=== PATIENT | female | born 1995 | race Caucasian/White ===

== ENCOUNTER 2016-07-29 16:23 | Inpatient (IN) | payer BC ==
[2016-07-29] MEDS ORDERED: Sodium Chloride 0.9% 10 ML Syringe FLUSH PRN (16:58)
[2016-07-29] MEDS ORDERED: Lactated Ringers 1,000 ML IV SCH ×2 (17:00→19:15)
[2016-07-29] MEDS ORDERED: Lidocaine 1% 30 ML SDV INJECT ONE (17:45)
[2016-07-29] MEDS: Acetaminophen 325 MG Tab PO PRN ×2 (18:53→22:36)
[2016-07-29] MEDS: Ibuprofen 600 MG Tab PO PRN (18:53)
[2016-07-29] MEDS ORDERED: Oxytocin 10 Units/1 ML SDV IM ONE (18:58)
[2016-07-29] MEDS: Docusate Sodium 100 MG Cap PO SCH (21:28)
[2016-07-29] MEDS ORDERED: Albuterol 8 GM Inhaler INH PRN (22:28)
[2016-07-30] MEDS: Ibuprofen 600 MG Tab PO PRN ×2 (02:49→11:15)
[2016-07-30] MEDS ORDERED: Albuterol 8 GM Inhaler INH PRN (06:57)
[2016-07-30] MEDS: Docusate Sodium 100 MG Cap PO SCH (09:35)
--- NOTE | 2016-07-30 10:47 | PN ---
DATE SEEN: 07/30/2016 SUBJECTIVE: Sonya Coker is a 21-year-old, 2, para 2 female seen today for examination. Surprisingly, hemoglobin 8.8. IV fluids were maintained through the night. No discomfort. Minimal perineal discomfort. Voiding without difficulty. No stools at present, ambulating without difficulty. OBJECTIVE: U-2 tone satisfactory. Perineum minimally ecchymotic. ASSESSMENT: 1. day 1, no problems. 2. Hemoglobin 8.8. PLAN: Good nutrition, good fluids, good hydration, vitamins. No other complicating issues expected. /[id number] DARRIUS/JHONATAN
--- NOTE | 2016-07-30 12:16 | DEL ---
DATE OF DELIVERY: 07/29/2016 HISTORY OF PRESENT ILLNESS: Sonya Coker is a 21-year-old, 2, para 1-0-0-1 female at 39+ weeks' gestation. EDC 07/31/2016 was admitted to [facility] in active labor. She has been mayur since about noon. They were mild to moderate, insignificant, became more progressive mid afternoon. Group B rectovaginal culture negative. No ruptured membranes or no significant bleeding. Exam on admission was satisfactory. Vital signs were stable. Blood pressure has been a concern in the last few weeks. PHYSICAL EXAMINATION: On exam, she was found to be 9 cm dilatation, +1 station, vertex presentation. Satisfactory heart tones. I was asked to attend the delivery. Amniotomy was performed. Clear fluid by first observation. Second stage of labor, little reluctant in terms of maternal participation, but eventually showed need to push and did so accordingly. The quality of pushes delivered, rather precipitously, but controlled in KARISHMA presentation without episiotomy. Nares were attempted to be sectioned, but delivered without opportunity. No nuchal cord delivered without difficulty. Mouth and oropharynx were suctioned. Baby was active, appropriate, crying, was placed on mom's tummy for routine warming. Cord was left intact. Over the course of about 3 minutes, cord finished pulsating. Cord was clamped, dad cut the cord in attendance, was given to nurses for routine resuscitation. Male , weight 8 pounds 10 ounces. scores 9 and 9. Three-cord vessel was identified. Cord blood was obtained. There was spontaneous placental separation. Three-cord vessel is intact. Uterine tone was maintained by massage and by 10 units of intramuscular Pitocin. The perineum was inspected. A second-degree tear. Infiltrated with 2% lidocaine and repaired in complex fashion with 3-0 chromic suture. Surgical results are excellent. Blood loss was 150 mL. Rectal exam revealed intact rectum. ASSESSMENT: 1. Normal spontaneous vaginal delivery with second-degree spontaneous episiotomy. 2. 8 pounds 10 ounce male , scores 9 and 9. 3. Nutrition, bottle feeding. PLAN: Routine course. No problems or concerns. We will maintain IV fluids, close observation, maternal and well being. Proceed accordingly. /[id number] DARRIUS/JHONATAN MA
[2016-07-30 16:36] VITALS: BP 134/87
--- NOTE | 2016-07-31 15:44 | PN ---
DATE SEEN: 07/30/2016 Sonya Coker is a 2, para 2, female, now 24 hours . Up, ambulating, and doing well. hemoglobin is surprisingly 8.8. We will proceed with vitamins, good nutrition, ibuprofen for pain, and lengthy postoperative instructions. The patient is in agreement. /[id number] DARRIUS/JHONATAN
== END 2016-07-30 19:53 | disposition home or self-care (01) | DRG 560 ==
LOC: FB.OBCHECK 16:23 → FB.OB 16:26
PROVIDERS: ADMIT Family Medicine; ATTEND Family Medicine
PROC: 10E0XZZ Delivery of Products of Conception, External Approach (ICD-10-PCS; principal; 2016-07-29)
PROC: 10907ZC Drainage of Amniotic Fluid, Therapeutic from Products of Conception, Via Natural or Artificial Opening (ICD-10-PCS; 2016-07-29)
DX: O62.3 Precipitate labor (principal); Z3A.39 39 weeks gestation of pregnancy; Z37.0 Single live birth
CPT/HCPCS: 36415; 85014; 85018; 85460; 86850; 86900; 86901; A9270-GY; J2590; J2790; J7120

== ENCOUNTER 2017-07-26 23:31 | Emergency (ER) | payer BC, MEDICAID ==
[2017-07-27 03:44] VITALS: BP 122/75
--- NOTE | 2017-07-27 10:16 | ER ---
DATE SEEN: 07/26/2017 TIME SEEN: The patient was seen at 0015 hours. HISTORY OF PRESENT ILLNESS: She is a 4, para 2-1-0-2. This 11-week woman comes in with history of a gush of clot of blood this evening. No history of intercourse. Last menstrual period, 05/09/2017. She is 11 weeks . The patient denies being lightheaded, having abdominal pain, back pain, arm pain, tachycardia, chest pain, shortness of breath, or diaphoresis. ALLERGIES: Fish-containing products, peanut, and pet dander. MEDICATIONS: 1. Wellbutrin. 2. vitamins. 3. Albuterol. REVIEW OF SYSTEMS: Negative, see HPI. PHYSICAL EXAMINATION: VITAL SIGNS: Heart rate 90, respirations 17, oxygen saturation 97%, blood pressure 129/78, and temperature is 36.7 degrees centigrade. Weight 90.71 kg. BMI 31.3 kg/m2. GENERAL: This pleasant woman is attended by her . She has no abdominal pain, but she is bleeding and concerned about it. She is not diaphoretic. She does not get dizzy when she stands up. PELVIC: Exam was not performed. ABDOMEN: Abdominal palpation was negative. IMAGING: Quick-look ultrasound demonstrated fetus with heart beat of 138 to 146. There is free and random motion of the fetus. No clear evidence for placenta previa or separation of placenta. There is some darkening of some of the structures within the uterus that would be considered potential areas of placental separation; however, this is indistinct and is very nondescript and is not clearly a dark distinct blood uterine wall separation. This is more like somewhat dark stranding. Again, this still could be a suggestion of placenta previa. There is no suggestion of this extending over the cervix. ASSESSMENT: Rule out placenta previa. At present, viable fetus. 11 weeks' gestational . Previous miscarriage history. PLAN: The patient to follow up with her doctor this week. The patient has been given an assignment to do only 2 things, bedrest and get up to go to the bathroom and eat, and to also get up occasionally to socialize. 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 Follow up with her doctor in a week, earlier if worse. /[id number] NEFTALI/JHONATAN
== END 2017-07-27 01:07 | disposition home or self-care (01) ==
LOC: FB.ED 23:31
DX: O09.299 Supervision of pregnancy with other poor reproductive or obstetric history, unspecified trimester (principal); O20.9 Hemorrhage in early pregnancy, unspecified; Z3A.11 11 weeks gestation of pregnancy; Z79.899 Other long term (current) drug therapy
CPT/HCPCS: 99284

== ENCOUNTER 2017-08-18 11:59 | Emergency (ER) | payer OTHER, BC, MEDICAID ==
[2017-08-18 21:02] VITALS: BP 120/71
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
== END 2017-08-18 14:17 | disposition home or self-care (01) ==
LOC: FB.ED 11:59
DX: O9A.212 Injury, poisoning and certain other consequences of external causes complicating pregnancy, second trimester (principal); S80.01XA Contusion of right knee, initial encounter; S00.11XA Contusion of right eyelid and periocular area, initial encounter; O99.342 Other mental disorders complicating pregnancy, second trimester; F32.9 Major depressive disorder, single episode, unspecified; O99.512 Diseases of the respiratory system complicating pregnancy, second trimester; J45.909 Unspecified asthma, uncomplicated; Z3A.14 14 weeks gestation of pregnancy; V49.40XA Driver injured in collision with unspecified motor vehicles in traffic accident, initial encounter
CPT/HCPCS: 99283

== ENCOUNTER 2018-11-25 21:23 | Emergency (ER) | payer BC ==
[2018-11-25] MEDS ORDERED: predniSONE 20 MG Tab PO ONE (21:24)
--- NOTE | 2018-11-25 22:31 | EDM.PDOC ---
ED HPI GENERAL MEDICAL PROBLEM - General Chief Complaint: General Stated Complaint: MOUTH IS SWELLING UP Time Seen by Provider: 11/25/18 22:27 Source of Information: Reports: Patient History Limitations: Reports: No Limitations - History of Present Illness INITIAL COMMENTS - FREE TEXT/NARRATIVE: Sonya complains of intermittent swelling of the tongue.She was seen in the [facility] on Saturday. She was given Kenalog with some temporary improvement. Also has limited relief with OTC antihistamines.No difficultly breathing. No recent new Meds,no new diet. - Related Data Allergies Allergy/AdvReac Type Severity Reaction Status Date / Time Fish Containing Products Allergy Unknown Airway Verified 05/10/18 04:09 Tightness peanut Allergy Unknown Airway Verified 05/10/18 04:09 Tightness pet dander Allergy Sneezing Uncoded 05/10/18 04:09 Home Meds: Home Meds Albuterol [Ventolin HFA] 1 puff ORAL.INH Q4H PRN 10/25/13 [History] .Propranolol 05/10/18 [History] .Zoloft 05/10/18 [History] Famotidine [Pepcid] 20 mg PO DAILY #30 tab 05/10/18 [Rx] Levothyroxine Sodium [Synthroid] 25 mcg PO ACBREAKFAST #10 tab 05/10/18 [Rx] Past Medical History - Past Health History Medical/Surgical History: Denies Medical/Surgical History HEENT History: Reports: Impaired Vision, Other (See Below) Other HEENT History: wears glasses Cardiovascular History: Reports: Hypertension Respiratory History: Reports: Asthma Other Respiratory History: uses inhaler daily Gastrointestinal History: Reports: GERD 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: , 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 SPECIALIST History: Psychiatric History: Reports: Anxiety, Depression Endocrine/Metabolic History: Reports: Obesity/BMI 30+ Dermatologic History: Reports: Eczema - Infectious Disease History Infectious Disease History: Reports: Chicken Pox - Past Surgical History Female Surgical History: Reports: D&C Social & Family History - Family History Family Medical History: Noncontributory HEENT: Reports: Cataract OBGYN: Reports: , Recurrent Spontaneous Neurological: Reports: Alzheimers Disease Endocrine/Metabolic: Reports: Diabetes, type II Oncologic: Reports: Lung - Tobacco Use Smoking Status *Q: Former Smoker Used Tobacco, but Quit: Yes Month/Year Tobacco Last Used: 2011 - Caffeine Use Caffeine Use: Reports: Soda Other Caffeine Use: 1 bottle of pop per day Caffeine Use Comment: uses very little ED ROS GENERAL - Review of Systems Review Of Systems: ROS reveals no pertinent complaints other than HPI. ED EXAM, GENERAL - Physical Exam Exam: See Below Exam Limited By: No Limitations General Appearance: Alert, WD/WN, No Apparent Distress Nose: Normal Inspection Throat/Mouth: Normal Inspection, Normal Lips, Normal Oropharynx, Normal Voice Head: Atraumatic, Sinus Tenderness Course - Vital Signs Last Recorded V/S: Last Vital Signs Temp 98.0 F 11/25/18 21:23 Pulse 98 11/25/18 21:23 Resp 17 11/25/18 21:23 BP 113/71 11/25/18 21:23 Pulse Ox 100 11/25/18 21:23 Departure - Departure Time of Disposition: 22:29 Disposition: Home, Self-Care 01 Condition: Good Clinical Impression: Angioedema - Discharge Information Referrals: Sven Charlton MD [Primary Care Provider] - - Problem List & Annotations (1) Angioedema SNOMED Code(s): 51497031 Code(s): T78.3XXA - ANGIONEUROTIC EDEMA, INITIAL ENCOUNTER Status: Acute Current Visit: Yes Qualifiers: Encounter type: subsequent encounter Qualified Code(s): T78.3XXD - Angioneurotic edema, subsequent encounter - Problem List Review Problem List Initiated/Reviewed/Updated: Yes - My Orders Last 24 Hours: Prednisone 20 mg bid. Claritin 10 mg daily(OTC). See Dr Gregory this week for a referral to [facility] [place].
[2018-11-25 23:35] VITALS: BP 107/54; PULSE 89
== END 2018-11-25 22:39 | disposition home or self-care (01) ==
LOC: FB.ED 21:23
DX: T78.3XXA Angioneurotic edema, initial encounter (principal); I10 Essential (primary) hypertension; J45.909 Unspecified asthma, uncomplicated; F41.9 Anxiety disorder, unspecified; F32.9 Major depressive disorder, single episode, unspecified; K21.9 Gastro-esophageal reflux disease without esophagitis; Z91.013 Allergy to seafood; Z91.010 Allergy to peanuts; Z91.048 Other nonmedicinal substance allergy status; Z79.899 Other long term (current) drug therapy
CPT/HCPCS: 99283; A9270

== ENCOUNTER → 2019-02-24 | Outpatient (CLI) | payer BC | LOC: FB.DI 13:03 | PROVIDERS: ATTEND Family Medicine | DX: R10.84 Generalized abdominal pain (principal); K80.20 Calculus of gallbladder without cholecystitis without obstruction | CPT/HCPCS: 76705 ==

== ENCOUNTER 2019-04-20 20:38 | Emergency (ER) | payer BC, OTHER ==
[2019-04-20] MEDS ORDERED: Ondansetron 4 MG Tab.DIS PO ONE (20:39)
[2019-04-20] MEDS ORDERED: Ondansetron 8 MG Tab.DIS PO ONE (20:57)
[2019-04-20] MEDS ORDERED: Alum Hydroxide/Mag Hydroxide 15 ML, Lidocaine 2% 15 ML PO ONE ×2 (20:57)
--- NOTE | 2019-04-20 21:10 | EDM.PDOC ---
ED HPI GENERAL MEDICAL PROBLEM - General Stated Complaint: CHEST PAIN Time Seen by Provider: 04/20/19 20:45 Source of Information: Reports: Patient History Limitations: Reports: No Limitations - History of Present Illness INITIAL COMMENTS - FREE TEXT/NARRATIVE: states she developed the viral enteritis this pm at 7 pm. with diarrhea , nausea and no vomiting , Symptoms got worse . Now she has epigastric and chest pain , burning sensation in the chest Onset: Today Onset Date: 04/27/19 Onset Time: 19:00 Duration: Intermittent Location: Reports: Abdomen (epigastrium and chest) Quality: Reports: Burning Severity: Moderate Improves with: Reports: Eating Worsens with: Reports: Breathing Context: Reports: Sick Contact Associated Symptoms: Reports: Loss of Appetite, Malaise - Related Data Allergies Allergy/AdvReac Type Severity Reaction Status Date / Time Fish Containing Products Allergy Unknown Airway Verified 04/20/19 20:50 Tightness peanut Allergy Unknown Airway Verified 04/20/19 20:50 Tightness pet dander Allergy Sneezing Uncoded 04/20/19 20:50 Home Meds: Home Meds Albuterol [Ventolin HFA] 1 puff ORAL.INH Q4H PRN 10/25/13 [History] Omeprazole Magnesium [Prilosec Otc] 20 mg PO DAILY 04/20/19 [History] Ondansetron [Zofran ODT] 4 mg PO Q6H PRN #20 tab.dis 04/20/19 [Rx] buPROPion HCl [Wellbutrin Xl] 150 mg PO DAILY 04/20/19 [History] Past Medical History - Past Health History Medical/Surgical History: Denies Medical/Surgical History HEENT History: Reports: Impaired Vision, Other (See Below) Other HEENT History: wears glasses Cardiovascular History: Reports: Hypertension Respiratory History: Reports: Asthma Other Respiratory History: uses inhaler daily Gastrointestinal History: Reports: GERD 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: , 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 History: Psychiatric History: Reports: Anxiety, Depression Endocrine/Metabolic History: Reports: Obesity/BMI 30+ Dermatologic History: Reports: Eczema - Infectious Disease History Infectious Disease History: Reports: Chicken Pox - Past Surgical History Female Surgical History: Reports: D&C Social & Family History - Family History Family Medical History: Noncontributory HEENT: Reports: Cataract OBGYN: Reports: , Recurrent Spontaneous Neurological: Reports: Alzheimers Disease Endocrine/Metabolic: Reports: Diabetes, type II Oncologic: Reports: Lung - Caffeine Use Caffeine Use: Reports: Soda Other Caffeine Use: 1 bottle of pop per day Caffeine Use Comment: uses very little ED ROS GENERAL - Review of Systems Review Of Systems: See Below Constitutional: Reports: Malaise, Weakness, Fatigue HEENT: Reports: No Symptoms Respiratory: Reports: No Symptoms Cardiovascular: Reports: Chest Pain, Palpitations. Denies: Blood Pressure Problem, Dyspnea on Exertion, Edema, Lightheadedness Endocrine: Reports: Fatigue GI/Abdominal: Reports: Abdominal Pain, Diarrhea, Decreased Appetite, Nausea : Reports: No Symptoms Musculoskeletal: Reports: No Symptoms Skin: Reports: No Symptoms Neurological: Reports: No Symptoms Psychiatric: Reports: Anxiety Hematologic/Lymphatic: Reports: No Symptoms Immunologic: Reports: No Symptoms ED EXAM, GI/ABD - Physical Exam Exam: See Below Exam Limited By: No Limitations General Appearance: Alert, WD/WN, No Apparent Distress Eyes: Bilateral: EOMI Ears: Normal External Exam, Hearing Grossly Normal Nose: Normal Inspection Throat/Mouth: Normal Inspection, Normal Lips Head: Atraumatic, Normocephalic Neck: Supple, Non-Tender, Full Range of Motion Respiratory/Chest: Lungs Clear, Normal Breath Sounds Cardiovascular: Normal Peripheral Pulses, Regular Rate, Rhythm GI/Abdominal Exam: Soft, Abnormal Bowel Sounds (hyperactive) Back Exam: Normal Inspection, Full Range of Motion Extremities: Normal Inspection, Normal Range of Motion Neurological: Alert, Oriented, CN II-XII Intact Psychiatric: Normal Affect, Normal Mood Skin Exam: Warm, Intact Course - Vital Signs Last Recorded V/S: Last Vital Signs Temp 36.3 C 04/20/19 20:40 Pulse 105 H 04/20/19 20:40 Resp 20 04/20/19 20:40 BP 125/72 04/20/19 20:40 Pulse Ox 100 04/20/19 20:40 - Orders/Labs/Meds Meds: Medications Discontinued Medications Generic Name Dose Route Start Last Admin Trade Name Freq PRN Reason Stop Dose Admin Al Hydroxide/Mg Hydroxide 15 0 ml 04/20/19 20:57 04/20/19 21:20 ml/ Lidocaine HCl 15 ml PO 04/20/19 20:58 30 ml ONETIME ONE Administration Ondansetron HCl 8 mg 04/20/19 20:57 04/20/19 21:20 Zofran Odt PO 04/20/19 20:58 8 mg ONETIME ONE Administration - Re-Assessments/Exams Free Text/Narrative Re-Assessment/Exam: 04/20/19 21:20 felt better after taking Zofran and GI cocktail Departure - Departure Time of Disposition: 09:30 Disposition: Home, Self-Care 01 Condition: Fair Clinical Impression: Viral gastroenteritis Gastritis Qualifiers: Gastritis type: unspecified gastritis Chronicity: acute Gastritis bleeding: without bleeding Qualified Code(s): K29.00 - Acute gastritis without bleeding - Discharge Information *PRESCRIPTION DRUG MONITORING PROGRAM REVIEWED*: Not Applicable *COPY OF PRESCRIPTION DRUG MONITORING REPORT IN PATIENT MONE: Not Applicable Prescriptions: Ondansetron [Zofran ODT] 4 mg PO Q6H PRN #20 tab.dis PRN Reason: Nausea Instructions: Gastritis, Adult, [id number], Viral Gastroenteritis, Adult, [id number] Referrals: PCP,None [Primary Care Provider] - Sepsis Event Note - Focused Exam Vital Signs: Vital Signs Temp Pulse Resp BP Pulse Ox 04/20/19 20:40 36.3 C 105 H 20 125/72 100
[2019-04-21 05:23] VITALS: BP 104/75; PULSE 113
== END 2019-04-20 21:47 | disposition home or self-care (01) ==
LOC: FB.ED 20:38
DX: A08.4 Viral intestinal infection, unspecified (principal); K29.00 Acute gastritis without bleeding; I10 Essential (primary) hypertension; J45.909 Unspecified asthma, uncomplicated; K21.9 Gastro-esophageal reflux disease without esophagitis; F41.9 Anxiety disorder, unspecified; F32.9 Major depressive disorder, single episode, unspecified; E66.9 Obesity, unspecified; Z68.31 Body mass index [BMI] 31.0-31.9, adult; Z91.010 Allergy to peanuts; Z91.013 Allergy to seafood; Z91.048 Other nonmedicinal substance allergy status; Z79.899 Other long term (current) drug therapy
CPT/HCPCS: 99283; 99284; A9270

== ENCOUNTER 2019-09-29 23:37 | Emergency (ER) | payer OTHER ==
[2019-09-30] MEDS ORDERED: Ondansetron 4 MG Tab.DIS PO STA (00:12)
[2019-09-30] MEDS ORDERED: Ketorolac 60 MG/2 ML SDV IM ONE (00:12)
--- NOTE | 2019-09-30 00:22 | EDM.PDOC ---
ED HPI GENERAL MEDICAL PROBLEM - General Chief Complaint: Back Pain or Injury Stated Complaint: CHEST PAIN Time Seen by Provider: 09/29/19 23:40 Source of Information: Reports: Patient History Limitations: Reports: No Limitations - History of Present Illness INITIAL COMMENTS - FREE TEXT/NARRATIVE: Patient presented to the ED because of chset pain and left shoulder pain which started 4 days ago. The pain is sharp and pleuritic, it comes and goes and associated with nausea and dyspnea. there is no fever or chills. L midback radiating across L upper chest Pain Score (Numeric/FACES): 5 - Related Data Allergies Allergy/AdvReac Type Severity Reaction Status Date / Time Fish Containing Products Allergy Unknown Airway Verified 09/29/19 23:45 Tightness peanut Allergy Unknown Airway Verified 09/29/19 23:45 Tightness pet dander Allergy Sneezing Uncoded 09/29/19 23:45 Home Meds: Home Meds Albuterol [Ventolin HFA] 2 puff ORAL.INH Q4H PRN 10/25/13 [History] Azithromycin [Zithromax] 250 mg PO DAILY #6 tablet 09/30/19 [Rx] predniSONE [Prednisone] 40 mg PO DAILY #10 tablet 09/30/19 [Rx] Past Medical History - Past Health History Medical/Surgical History: Denies Medical/Surgical History HEENT History: Reports: Impaired Vision, Other (See Below) Other HEENT History: wears glasses Cardiovascular History: Reports: Hypertension Other Cardiovascular History: preclampsia Respiratory History: Reports: Asthma Other Respiratory History: uses inhaler daily Gastrointestinal History: Reports: GERD 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: , 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: Neurological History: Reports: Migraines Psychiatric History: Reports: Anxiety, Depression Endocrine/Metabolic History: Reports: Obesity/BMI 30+ Dermatologic History: Reports: Eczema - Infectious Disease History Infectious Disease History: Reports: Chicken Pox - Past Surgical History Head Surgeries/Procedures: Reports: None HEENT Surgical History: Reports: None Cardiovascular Surgical History: Reports: None GI Surgical History: Reports: None Female Surgical History: Reports: D&C Social & Family History - Family History Family Medical History: Noncontributory HEENT: Reports: Cataract OBGYN: Reports: , Recurrent Spontaneous Neurological: Reports: Alzheimers Disease Endocrine/Metabolic: Reports: Diabetes, type II Oncologic: Reports: Lung - Tobacco Use Smoking Status *Q: Former Smoker Years of Tobacco use: 1 Used Tobacco, but Quit: Yes Month/Year Tobacco Last Used: 2011 - Caffeine Use Caffeine Use: Reports: Soda, Tea Other Caffeine Use: 1 bottle of pop per day Caffeine Use Comment: uses very little - Recreational Drug Use Recreational Drug Use: No ED ROS GENERAL - Review of Systems Review Of Systems: See Below Constitutional: Reports: No Symptoms HEENT: Reports: No Symptoms Respiratory: Reports: Shortness of Breath Cardiovascular: Reports: Chest Pain Endocrine: Reports: No Symptoms GI/Abdominal: Reports: Nausea ED EXAM, GENERAL - Physical Exam Exam: See Below Exam Limited By: No Limitations General Appearance: Alert, No Apparent Distress Ears: Normal External Exam Nose: Normal Inspection, Normal Mucosa, No Blood Throat/Mouth: Normal Inspection, Normal Lips, Normal Teeth Head: Atraumatic, Normocephalic Neck: Normal Inspection, Supple, Non-Tender, Full Range of Motion Respiratory/Chest: No Respiratory Distress, Lungs Clear, Normal Breath Sounds, No Accessory Muscle Use, Chest Non-Tender Cardiovascular: Normal Peripheral Pulses, Regular Rate, Rhythm, No Edema, No Gallop GI/Abdominal: Normal Bowel Sounds, Soft, Non-Tender Back Exam: Normal Inspection, Full Range of Motion Course - Vital Signs Text/Narrative:: EKG/Labs/CXR was discussed with patient and verbalized full understanding Zofran 4mg ODT Toradol 60 mg IM x1 Last Recorded V/S: Last Vital Signs Temp 36.3 C 09/29/19 23:37 Pulse 76 09/30/19 00:55 Resp 18 09/30/19 00:55 BP 120/76 09/30/19 00:55 Pulse Ox 99 09/30/19 00:55 - Orders/Labs/Meds Orders: Active Orders 24 hr Category Date Time Status Chest 1V Frontal [CR] Stat Exams 09/30/19 00:07 Taken EKG 12 Lead [EK] Routine Ther 09/29/19 23:49 Ordered Labs: Laboratory Tests 09/30/19 09/30/19 09/30/19 Range/Units 00:00 00:00 00:00 WBC 12.7 H (4.5-12.0) X10-3/uL RBC 4.62 (3.23-5.20) x10(6)uL Hgb 13.1 (11.5-15.5) g/dL Hct 40.0 (30.0-51.3) % MCV 86.6 (80-96) fL MCH 28.4 (27.7-33.6) pg MCHC 32.8 (32.2-35.4) g/dL RDW 14.6 (11.5-15.5) % Plt Count 269 (125-369) X10(3)uL MPV 9.1 (7.4-10.4) fL Neut % (Auto) 60.5 (46-82) % Lymph % (Auto) 27.7 (13-37) % [place] % (Auto) 6.1 (4-12) % Eos % (Auto) 5 (1.0-5.0) % Baso % (Auto) 1 (0-2) % Neut # (Auto) 7.6 (1.6-8.3) # Lymph # (Auto) 3.5 (0.6-5.0) # [place] # (Auto) 0.8 (0.0-1.3) # Eos # (Auto) 0.7 (0.0-0.8) # Baso # (Auto) 0.1 (0.0-0.2) # Sodium 139 (135-145) mmol/L Potassium 4.0 (3.5-5.3) mmol/L Chloride 103 (100-110) mmol/L Carbon Dioxide 27 (21-32) mmol/L BUN 15 (7-18) mg/dL Creatinine 0.8 (0.55-1.02) mg/dL Est Cr Clr Drug Dosing 99.76 mL/min Estimated GFR (MDRD) > 60 (>60) BUN/Creatinine Ratio 18.8 (9-20) Glucose 101 (80-116) mg/dL Calcium 9.6 (8.6-10.2) mg/dL Troponin I < 4.0 L (4.0-60.3) pg/mL Meds: Medications Discontinued Medications Generic Name Dose Route Start Last Admin Trade Name Freq PRN Reason Stop Dose Admin Hydroxyzine Pamoate 50 mg 09/30/19 01:10 09/30/19 01:17 Vistaril PO 09/30/19 01:11 50 mg NOW STA Administration Ketorolac Tromethamine 60 mg 09/30/19 00:12 09/30/19 00:31 Toradol IM 09/30/19 00:13 60 mg ONETIME ONE Administration Ondansetron HCl 4 mg 09/30/19 00:12 09/30/19 00:31 Zofran Odt PO 09/30/19 00:13 4 mg NOW STA Administration Departure - Departure Time of Disposition: 01:00 Disposition: Home, Self-Care 01 Condition: Good Clinical Impression: Pleurisy Prescriptions: predniSONE [Prednisone] 40 mg PO DAILY #10 tablet Azithromycin [Zithromax] 250 mg PO DAILY #6 tablet Instructions: Ondansetron oral dissolving tablet, Nonspecific Chest Pain, Adult, [id number], Pleurisy, [id number], Hydroxyzine capsules or tablets Referrals: Sven Charlton MD [Primary Care Provider] - Forms: ED Department Discharge Additional Instructions: Please read discharge instructions on pleurisy Increase oral fluids Ventolin Inh, 2 puffs every 4-6 hours as needed for dyspnea prednisone 20 mg, take 2 tablets daily for 6 days Follow up if symptoms persist. Sepsis Event Note (ED) - Evaluation Sepsis Screening Result: No Definite Risk - Focused Exam Vital Signs: Vital Signs Temp Pulse Resp BP Pulse Ox 09/30/19 00:55 76 18 120/76 99 09/29/19 23:37 36.3 C 85 20 130/78 100 - My Orders Last 24 Hours: My Active Orders 09/29/19 23:49 EKG 12 Lead [EK] Routine 09/30/19 00:07 Chest 1V Frontal [CR] Stat - Assessment/Plan Last 24 Hours: My Active Orders 09/29/19 23:49 EKG 12 Lead [EK] Routine 09/30/19 00:07 Chest 1V Frontal [CR] Stat
[2019-09-30 01:42] VITALS: BP 120/76; PULSE 76
--- NOTE | 2019-09-30 10:20 | CR ---
INDICATION: Chest pain. CHEST, ONE VIEW: Portable AP upright view of the chest was obtained 09/30/2019-no comparisons. The heart, mediastinum, and body thorax are unremarkable. While a definite active infiltrate or effusion was not identified, there is bronchial wall cuffing at the lung bases of mild to moderate degree, which could be on the basis of active peribronchial disease and should be correlated clinically. IMPRESSION: Bronchial wall cuffing. No other evidence of possible active disease. MTDD
== END 2019-09-30 01:20 | disposition home or self-care (01) ==
LOC: FB.ED 23:37
DX: R09.1 Pleurisy (principal); E66.9 Obesity, unspecified; I10 Essential (primary) hypertension; J45.909 Unspecified asthma, uncomplicated; Z87.891 Personal history of nicotine dependence; Z79.899 Other long term (current) drug therapy; Z91.048 Other nonmedicinal substance allergy status; Z91.013 Allergy to seafood; Z91.010 Allergy to peanuts; Z68.31 Body mass index [BMI] 31.0-31.9, adult
CPT/HCPCS: 36415; 71045; 80048; 84484; 85025; 93005; 96372; 99285; A9270; J1885

== ENCOUNTER 2020-02-10 07:19 | Day surgery (SDC) | payer OTHER ==
[~2020-02-10 07:19] MED LIST: Lactated Ringers 1,000 ML IV SCH; Sodium Chloride 0.9% 10 ML Syringe FLUSH PRN
[2020-02-10] MEDS ORDERED: fentaNYL 100 MCG/2 ML SDV IV ONE (07:20)
[2020-02-10] MEDS ORDERED: Dexamethasone 4 MG/ML 5 ML MDV IVPUSH ONE (07:20)
[2020-02-10] MEDS ORDERED: Rocuronium 100 MG/10 ML MDV IV ONE (07:20)
[2020-02-10] MEDS ORDERED: Ondansetron 4 MG/2 ML SDV IVPUSH ONE (07:20)
[2020-02-10] MEDS ORDERED: ePHEDrine 50 MG/ML SDV IV ONE (07:20)
[2020-02-10] MEDS ORDERED: Neostigmine Methylsulfate 10 MG/10 ML MDV IVPUSH ONE (07:20)
[2020-02-10] MEDS ORDERED: Glycopyrrolate 0.2 MG/ML 5 ML MDV IV ONE (07:20)
[2020-02-10] MEDS ORDERED: Lactated Ringers 1,000 ML IV ONE (07:20)
[2020-02-10] MEDS ORDERED: Propofol 200 MG/20 ML SDV IV ONE (07:20)
[2020-02-10] MEDS ORDERED: Phenylephrine 1% 10 MG/ML SDV IV ONE (07:20)
[2020-02-10] MEDS ORDERED: Ketamine 500 mg/10 ML MDV IV ONE (07:20)
[2020-02-10] MEDS ORDERED: Midazolam 1 MG/ML 2 ML SDV IV ONE (07:20)
[2020-02-10] MEDS ORDERED: Acetaminophen 500 MG Tab PO ONE (07:45)
[2020-02-10] MEDS ORDERED: cefOXitin 2 GM in Sodium Chloride 0.9% 100 ML IV ONE (08:45)
[2020-02-10] MEDS ORDERED: cefOXitin 2 GM Vial IVPUSH ONE (08:45)
[2020-02-10] MEDS ORDERED: Lidocaine 1% with EPINEPHrine 1:100,000 20 ML MDV INJECT ONE (08:48)
[2020-02-10] MEDS ORDERED: Bupivacaine 0.5% 30 ML SDV INJECT ONE (08:48)
--- NOTE | 2020-02-10 09:41 | PCM.OPNOTE ---
- General Post-Op/Procedure Note Date of Surgery/Procedure: 02/10/20 Operative Procedure(s): lap cholecystectomy Findings: ciritcal view obtained. Pre Op Diagnosis: gallstones without obstruction or infection Post-Op Diagnosis: Same Anesthesia Technique: General ET Tube, Local (10 ml 1 % lido with epi/0.5% buvipicaine) Primary Surgeon: Yoel Lim Anesthesia Provider: Maria A Herrera Pathology: gallbladder and contents EBL in mLs: 30 Complications: None Condition: Good Free Text/Narrative:: see dictation [id number]
[2020-02-10] MEDS ORDERED: Acetaminophen/HYDROcodone 325-5 MG Tab PO PRN (09:48)
[2020-02-10 12:35] VITALS: BP 121/65; PULSE 87
--- NOTE | 2020-02-10 14:38 | OR ---
DATE OF OPERATION: 02/10/2020 SURGEON: Yoel Lim MD PROCEDURE PERFORMED: Laparoscopic cholecystectomy. PREOPERATIVE DIAGNOSIS: Cholelithiasis without obstruction or cholecystitis. POSTOPERATIVE DIAGNOSIS: Cholelithiasis without obstruction or cholecystitis. INDICATIONS FOR PROCEDURE: This is a 24-year-old white female with symptomatic gallstones. She was offered and accepted laparoscopic cholecystectomy. INTRAOPERATIVE FINDINGS: 10 mL of our local mixture was used for trocar sites. Critical view was obtained. The patient was also noted to have what appeared to be an aberrant blood vessel that was anterior to the cystic duct. This was noted to splay out on the gallbladder as well. Photo was taken of this area. DESCRIPTION OF PROCEDURE: After an excellent general anesthetic was administered via endotracheal tube, the patient was prepped and draped in usual sterile manner. Local was injected just below the patient's umbilicus and a small vertical midline incision was carried out of approximately 2 cm in length. Blunt dissection was carried out exposing the midline fascia and 2 stay sutures of 0 Vicryl placed on either side of midline fascia which was then elevated and incised. The abdominal cavity was entered sharply, and after digital palpation to ensure no adhesions, a 10.5 mm Lucita trocar was inserted. The patient's abdomen was insufflated to 15 mmHg using carbon dioxide. The patient was then placed in reverse Trendelenburg with a slight airplane to the left. Three 5 mm trocars were placed below the right costal margin and in the midline. This was done by infiltrating local full thickness, making a stab incision, and then, inserting the trocars. The right costal trocar sites were at the approximate level of the midclavicular and anterior axillary line. The gallbladder was grasped, retracted in a cephalad fashion. Careful blunt dissection was carried out. As noted, running anterior from the surface of the gallbladder down into the anterior to the common bile duct, the cystic duct, there was what appeared to be a splayed out blood vessel. The cystic duct and the cystic artery were then dissected free and identified as well. After assuring that we did have the cystic duct as well as the cystic artery and looking at the size of the anterior blood vessel which was roughly a millimeter if that big in size, 2 clips were proximally on this structure, one distally and then this was transected, two clips were placed proximally on the cystic duct and one distally and this was transected, two clips were placed proximally on the cystic artery and one distally and this was transected as well using scissors. Electrocautery dissection was then used to dissect the gallbladder free from the gallbladder fossa. The specimen was passed into specimen bag and delivered out through the umbilicus. When we returned to inspect the gallbladder fossa, there was some diffuse oozing. This was controlled with electrocautery. The area was irrigated. We did apply a piece of Surgicel, and after 5 minutes, we reinspected the area with no active bleeding noted. The area was irrigated until clear. 3 trocars were removed under direct visualization, and then, umbilical trocar was removed as well. 0 Vicryl was then used in a figure-of- eight to reapproximate the periumbilical fascia. The skin was closed with interrupted 4-0 Vicryl. Steri-Strips were applied. Needle, sponge, and instrument counts were reported as correct. /[id number] /MODL
== END 2020-02-10 12:17 | disposition home or self-care (01) ==
LOC: FB.SDS 07:19
PROVIDERS: ATTEND Surgery
DX: K80.10 Calculus of gallbladder with chronic cholecystitis without obstruction (principal); J45.40 Moderate persistent asthma, uncomplicated; Z98.890 Other specified postprocedural states; Z79.899 Other long term (current) drug therapy
CPT/HCPCS: 00790; 47562; 81025; 88304; A9270; J0694; J1100; J2001; J2250; J2370; J2405; J2704; J2710; J3010; J3490; J7120

== ENCOUNTER 2020-03-20 20:48 | Emergency (ER) | payer OTHER ==
--- NOTE | 2020-03-20 22:06 | EDM.PDOC ---
ED HPI GENERAL MEDICAL PROBLEM - General Chief Complaint: Chest Pain Stated Complaint: CHEST PAIN Time Seen by Provider: 03/20/20 21:05 Source of Information: Reports: Patient History Limitations: Reports: No Limitations - History of Present Illness INITIAL COMMENTS - FREE TEXT/NARRATIVE: Patient presented to the ED because of chest pain and back pain which started 3 days ago. The pain is sharp,3/10. there is no fever/chills/ cough or cold symptoms. She also c/o eldt shoulder pain radiating to the upper back. L anterior chest into L shoulder & back Pain Score (Numeric/FACES): 4 - Related Data Allergies Allergy/AdvReac Type Severity Reaction Status Date / Time Fish Containing Products Allergy Unknown Airway Verified 02/10/20 07:49 Tightness peanut Allergy Unknown Anaphylactic Verified 02/10/20 07:49 Shock tree nut Allergy Anaphylactic Verified 02/10/20 07:49 Shock pet dander Allergy Sneezing Uncoded 02/10/20 07:49 Home Meds: Home Meds Albuterol [Ventolin HFA] 2 puff INH Q4H PRN 10/25/13 [History] Beclomethasone Dipropionate [Qvar] 2 hr INH BID 02/09/20 [History] EPINEPHrine [Epipen] 0.3 mg IM ASDIRECTED PRN 02/09/20 [History] Fluticasone Propionate [Flonase] 1 spray NASBOTH BID PRN 02/09/20 [History] Lactobacillus Rhamnosus GG [Culturelle] 1 cap PO DAILY 02/09/20 [History] Levonorgestrel/Ethin.estradiol [Levonor-Eth Estrad 0.15-0.03] 1 each PO DAILY 02/09/20 [History] Omeprazole 20 mg PO DAILY 02/09/20 [History] Sucralfate [Carafate] 1 gm PO QID 02/09/20 [History] Triamcinolone Acetonide [Kenalog 0.1% Crm] 1 applic TOP BID 02/09/20 [History] Vitamin B Complex 1 tab PO DAILY 02/09/20 [History] Acetaminophen/HYDROcodone [Protem 325-5 MG] 1 - 2 tab PO Q6H PRN #14 tab 02/10/20 [Rx] Celecoxib [CeleBREX] 200 mg PO BID #10 cap 02/10/20 [Rx] Past Medical History - Past Health History Medical/Surgical History: Denies Medical/Surgical History HEENT History: Reports: Impaired Vision Cardiovascular History: Reports: None Respiratory History: Reports: Asthma Gastrointestinal History: Reports: Cholelithiasis, GERD Genitourinary History: Reports: None 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 PREECLAMPSIA Musculoskeletal History: Reports: None Neurological History: Reports: Migraines Psychiatric History: Reports: Anxiety, Depression Endocrine/Metabolic History: Reports: Obesity/BMI 30+ Hematologic History: Reports: None Immunologic History: Reports: None Oncologic (Cancer) History: Reports: None Dermatologic History: Reports: Eczema - Infectious Disease History Infectious Disease History: Reports: Chicken Pox - Past Surgical History Head Surgeries/Procedures: Reports: None HEENT Surgical History: Reports: None Cardiovascular Surgical History: Reports: None Respiratory Surgical History: Reports: None GI Surgical History: Reports: None Female Surgical History: Reports: D&C Endocrine Surgical History: Reports: None Neurological Surgical History: Reports: None Musculoskeletal Surgical History: Reports: None Oncologic Surgical History: Reports: None Dermatological Surgical History: Reports: None Social & Family History - Family History Family Medical History: No Pertinent Family History HEENT: Reports: Cataract OBGYN: Reports: , Recurrent Spontaneous Neurological: Reports: Alzheimers Disease Endocrine/Metabolic: Reports: Diabetes, type II Oncologic: Reports: Lung - Caffeine Use Caffeine Use: Reports: Soda, Tea Other Caffeine Use: 1 bottle of pop per day Caffeine Use Comment: uses very little ED ROS GENERAL - Review of Systems Review Of Systems: See Below Constitutional: Reports: No Symptoms HEENT: Reports: No Symptoms Respiratory: Reports: No Symptoms Cardiovascular: Reports: No Symptoms Endocrine: Reports: No Symptoms GI/Abdominal: Reports: No Symptoms : Reports: No Symptoms Musculoskeletal: Reports: Shoulder Pain Skin: Reports: No Symptoms ED EXAM, GENERAL - Physical Exam Exam: See Below Exam Limited By: No Limitations General Appearance: Alert, No Apparent Distress Ears: Normal External Exam Nose: Normal Inspection, Normal Mucosa, No Blood Throat/Mouth: Normal Inspection, Normal Lips, Normal Teeth Neck: Normal Inspection Respiratory/Chest: No Respiratory Distress Cardiovascular: Normal Peripheral Pulses, Regular Rate, Rhythm, No Edema, No Gallop GI/Abdominal: Normal Bowel Sounds, Soft, Non-Tender, No Organomegaly Extremities: Normal Inspection, Normal Range of Motion, Non-Tender Neurological: Alert, Oriented, CN II-XII Intact, Normal Cognition Psychiatric: Normal Affect Course - Vital Signs Text/Narrative:: Labs/EKG was discussed with patient refused pain medication Last Recorded V/S: Last Vital Signs Temp 36.5 C 03/20/20 21:00 Pulse 98 03/20/20 21:00 Resp 18 03/20/20 21:00 BP 132/82 03/20/20 21:00 Pulse Ox 100 03/20/20 21:00 - Orders/Labs/Meds Orders: Active Orders 24 hr Category Date Time Status EKG Documentation Completion [RC] ASDIRECTED Care 03/20/20 21:12 Active EKG 12 Lead [EK] Routine Ther 03/20/20 21:06 Ordered Labs: Laboratory Tests 03/20/20 03/20/20 03/20/20 Range/Units 21:15 21:15 21:15 WBC 9.6 (3.0-10.3) x10-3/uL RBC 4.41 (3.60-5.20) x10(6)uL Hgb 12.9 (11.4-15.5) g/dL Hct 38.7 (34.2-48.2) % MCV 87.7 (76.7-100.5) fL MCH 29.2 (23.9-33.9) pg MCHC 33.3 (31.9-34.8) g/dL RDW 14.3 (12.3-16.5) % Plt Count 211 (151-488) x10(3)uL MPV 9.2 (7.1-12.4) fL Neut % (Auto) 57.9 (30.8-76.2) % Lymph % (Auto) 32.5 (18.4-52.1) % Bradley % (Auto) 6.2 (4.4-15.7) % Eos % (Auto) 2.9 (0.6-8.1) % Baso % (Auto) 0.5 (0.2-1.5) % Neut # (Auto) 5.6 (1.5-6.3) x10-3/uL Lymph # (Auto) 3.1 (1.0-4.4) x10-3/uL Bradley # (Auto) 0.6 (0.3-1.0) x10-3/uL Eos # (Auto) 0.3 (0.0-0.8) x10-3/uL Baso # (Auto) 0.1 (0.0-0.1) x10-3/uL D-Dimer, Quantitative 0.34 (0.0-0.59) mg/LFEU Sodium 140 (135-145) mmol/L Potassium 4.0 (3.5-5.3) mmol/L Chloride 103 (100-110) mmol/L Carbon Dioxide 28 (21-32) mmol/L BUN 13 (7-18) mg/dL Creatinine 0.8 (0.55-1.02) mg/dL Est Cr Clr Drug Dosing TNP Estimated GFR (MDRD) > 60 (>60) BUN/Creatinine Ratio 16.3 (9-20) Glucose 98 (80-116) mg/dL Calcium 8.5 L (8.6-10.2) mg/dL Total Bilirubin 0.4 (0.1-1.3) mg/dL AST 25 D (5-25) IU/L ALT 46 H D (12-36) U/L Alkaline Phosphatase 83 (56-112) IU/L Troponin I (4.0-60.3) pg/mL Total Protein 7.7 (6.0-8.0) g/dL Albumin 3.8 (3.5-5.2) g/dL Globulin 3.9 g/dL Albumin/Globulin Ratio 1.0 12/13/20 Range/Units 21:15 WBC (3.0-10.3) x10-3/uL RBC (3.60-5.20) x10(6)uL Hgb (11.4-15.5) g/dL Hct (34.2-48.2) % MCV (76.7-100.5) fL MCH (23.9-33.9) pg MCHC (31.9-34.8) g/dL RDW (12.3-16.5) % Plt Count (151-488) x10(3)uL MPV (7.1-12.4) fL Neut % (Auto) (30.8-76.2) % Lymph % (Auto) (18.4-52.1) % Bradley % (Auto) (4.4-15.7) % Eos % (Auto) (0.6-8.1) % Baso % (Auto) (0.2-1.5) % Neut # (Auto) (1.5-6.3) x10-3/uL Lymph # (Auto) (1.0-4.4) x10-3/uL Bradley # (Auto) (0.3-1.0) x10-3/uL Eos # (Auto) (0.0-0.8) x10-3/uL Baso # (Auto) (0.0-0.1) x10-3/uL D-Dimer, Quantitative (0.0-0.59) mg/LFEU Sodium (135-145) mmol/L Potassium (3.5-5.3) mmol/L Chloride (100-110) mmol/L Carbon Dioxide (21-32) mmol/L BUN (7-18) mg/dL Creatinine (0.55-1.02) mg/dL Est Cr Clr Drug Dosing Estimated GFR (MDRD) (>60) BUN/Creatinine Ratio (9-20) Glucose (80-116) mg/dL Calcium (8.6-10.2) mg/dL Total Bilirubin (0.1-1.3) mg/dL AST (5-25) IU/L ALT (12-36) U/L Alkaline Phosphatase (56-112) IU/L Troponin I 4.5 (4.0-60.3) pg/mL Total Protein (6.0-8.0) g/dL Albumin (3.5-5.2) g/dL Globulin g/dL Albumin/Globulin Ratio Departure - Departure Time of Disposition: 21:15 Disposition: Home, Self-Care 01 Condition: Good Clinical Impression: Chest wall pain, Musculoskeletal pain Instructions: Musculoskeletal Pain, Chest Wall Pain, [id number] Referrals: PCP,None [Primary Care Provider] - Additional Instructions: Please read discharge instructions on chest wall pain and musculoskeletal pain Take ibuprofen 800 mg with tylenol 1000 mg every 8 hours as needed for pain Follow up as needed Sepsis Event Note (ED) - Evaluation Sepsis Screening Result: No Definite Risk - Focused Exam Vital Signs: Vital Signs Temp Pulse Resp BP Pulse Ox 03/20/20 21:00 36.5 C 98 18 132/82 100 - My Orders Last 24 Hours: My Active Orders 03/20/20 21:06 EKG 12 Lead [EK] Routine 03/20/20 21:12 EKG Documentation Completion [RC] ASDIRECTED - Assessment/Plan Last 24 Hours: My Active Orders 03/20/20 21:06 EKG 12 Lead [EK] Routine 03/20/20 21:12 EKG Documentation Completion [RC] ASDIRECTED
[2020-03-20 23:56] VITALS: BP 117/68; PULSE 87
== END 2020-03-20 22:17 | disposition home or self-care (01) ==
LOC: FB.ED 20:48
DX: R07.89 Other chest pain (principal); M79.10 Myalgia, unspecified site; E66.9 Obesity, unspecified; J45.909 Unspecified asthma, uncomplicated; K21.9 Gastro-esophageal reflux disease without esophagitis; Z91.013 Allergy to seafood; Z91.010 Allergy to peanuts; Z91.018 Allergy to other foods; Z88.8 Allergy status to other drugs, medicaments and biological substances; Z79.899 Other long term (current) drug therapy; Z68.31 Body mass index [BMI] 31.0-31.9, adult
CPT/HCPCS: 36415; 80053; 84484; 85025; 85379; 93005; 99284; 99285-25

== ENCOUNTER 2020-04-03 19:00 | Emergency (ER) | payer OTHER ==
[2020-04-03 19:13] VITALS: BP 144/78; PULSE 84
--- NOTE | 2020-04-03 19:45 | EDM.PDOC ---
ED HPI GENERAL MEDICAL PROBLEM - General Chief Complaint: Respiratory Problem Stated Complaint: sob Time Seen by Provider: 04/03/20 19:25 - History of Present Illness INITIAL COMMENTS - FREE TEXT/NARRATIVE: pt with known anxiety and claritza[ression states she has been restartedon Celexa for about 2 weeks and started haivng chest tight , ness , difficulty taking a deep breath , weakness , still gait disturbance , stumbling so she stopped celexa on saturday and since then symptoms have gotten worse use to be on Well butrin and felt well but had to stop as she was Would like to restsrt wellbutrin has been on vistaril too took vistaril before coming [facility] - Related Data Allergies Allergy/AdvReac Type Severity Reaction Status Date / Time Fish Containing Products Allergy Unknown Airway Verified 03/20/20 23:09 Tightness peanut Allergy Unknown Anaphylactic Verified 03/20/20 23:09 Shock tree nut Allergy Anaphylactic Verified 03/20/20 23:09 Shock pet dander Allergy Sneezing Uncoded 03/20/20 23:09 Home Meds: Home Meds Albuterol [Ventolin HFA] 2 puff INH Q4H PRN 10/25/13 [History] EPINEPHrine [Epipen] 0.3 mg IM ASDIRECTED PRN 02/09/20 [History] Fluticasone Propionate [Flonase] 1 spray NASBOTH BID PRN 02/09/20 [History] Triamcinolone Acetonide [Kenalog 0.1% Crm] 1 applic TOP BID PRN 02/09/20 [History] Loratadine [Claritin] 10 mg PO DAILY 03/20/20 [History] hydrOXYzine pamoate [Vistaril] 25 mg PO Q6H PRN 03/20/20 [History] buPROPion [Wellbutrin] 100 mg PO BID #60 tab 04/03/20 [Rx] Past Medical History - Past Health History Medical/Surgical History: Denies Medical/Surgical History HEENT History: Reports: Impaired Vision Cardiovascular History: Reports: None Respiratory History: Reports: Asthma Gastrointestinal History: Reports: Cholelithiasis, GERD Genitourinary History: Reports: None 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 PREECLAMPSIA Musculoskeletal History: Reports: None Neurological History: Reports: Migraines Psychiatric History: Reports: Anxiety, Depression Endocrine/Metabolic History: Reports: Obesity/BMI 30+ Hematologic History: Reports: None Immunologic History: Reports: None Oncologic (Cancer) History: Reports: None Dermatologic History: Reports: Eczema - Infectious Disease History Infectious Disease History: Reports: Chicken Pox, Novel Coronavirus - Past Surgical History Head Surgeries/Procedures: Reports: None HEENT Surgical History: Reports: None Cardiovascular Surgical History: Reports: None Respiratory Surgical History: Reports: None GI Surgical History: Reports: None Female Surgical History: Reports: D&C Endocrine Surgical History: Reports: None Neurological Surgical History: Reports: None Musculoskeletal Surgical History: Reports: None Oncologic Surgical History: Reports: None Dermatological Surgical History: Reports: None Social & Family History - Family History Family Medical History: No Pertinent Family History HEENT: Reports: Cataract OBGYN: Reports: , Recurrent Spontaneous Neurological: Reports: Alzheimers Disease Endocrine/Metabolic: Reports: Diabetes, type II Oncologic: Reports: Lung - Tobacco Use Tobacco Use Status *Q: Never Tobacco User - Caffeine Use Caffeine Use: Reports: Tea Other Caffeine Use: 1 bottle of pop per day Caffeine Use Comment: uses very little - Recreational Drug Use Recreational Drug Use: No ED ROS GENERAL - Review of Systems Review Of Systems: See Below Constitutional: Reports: No Symptoms HEENT: Reports: No Symptoms Respiratory: Reports: No Symptoms Cardiovascular: Reports: Lightheadedness, Palpitations Endocrine: Reports: Fatigue GI/Abdominal: Reports: No Symptoms Musculoskeletal: Reports: No Symptoms Skin: Reports: No Symptoms Neurological: Reports: Dizziness Psychiatric: Reports: Anxiety Hematologic/Lymphatic: Reports: No Symptoms ED EXAM, GENERAL - Physical Exam Exam: See Below Exam Limited By: No Limitations General Appearance: Alert, WD/WN, No Apparent Distress Nose: Normal Inspection, Normal Mucosa Throat/Mouth: Normal Inspection, Normal Lips, Normal Oropharynx Head: Atraumatic Respiratory/Chest: No Respiratory Distress, Lungs Clear Cardiovascular: Normal Peripheral Pulses, Regular Rate, Rhythm Back Exam: Normal Inspection, Full Range of Motion Extremities: Normal Inspection, Normal Range of Motion Neurological: Alert, Oriented, CN II-XII Intact, Normal Cognition, Normal Gait Psychiatric: Anxious Course - Vital Signs Last Recorded V/S: Last Vital Signs Temp 36.5 C 04/03/20 19:00 Pulse 84 04/03/20 19:00 Resp 16 04/03/20 19:00 BP 144/78 H 04/03/20 19:00 Pulse Ox 100 04/03/20 19:00 - Orders/Labs/Meds Labs: Laboratory Tests 04/03/20 04/03/20 Range/Units 20:00 20:00 WBC 7.9 (3.0-10.3) x10-3/uL RBC 4.58 (3.60-5.20) x10(6)uL Hgb 13.3 (11.4-15.5) g/dL Hct 40.8 (34.2-48.2) % MCV 89.1 (76.7-100.5) fL MCH 29.0 (23.9-33.9) pg MCHC 32.5 (31.9-34.8) g/dL RDW 14.2 (12.3-16.5) % Plt Count 243 (151-488) x10(3)uL MPV 9.1 (7.1-12.4) fL Neut % (Auto) 55.7 (30.8-76.2) % Lymph % (Auto) 34.7 (18.4-52.1) % Logan % (Auto) 5.8 (4.4-15.7) % Eos % (Auto) 3.1 (0.6-8.1) % Baso % (Auto) 0.7 (0.2-1.5) % Neut # (Auto) 4.4 (1.5-6.3) x10-3/uL Lymph # (Auto) 2.7 (1.0-4.4) x10-3/uL Logan # (Auto) 0.5 (0.3-1.0) x10-3/uL Eos # (Auto) 0.2 (0.0-0.8) x10-3/uL Baso # (Auto) 0.1 (0.0-0.1) x10-3/uL TSH, Ultra Sensitive 2.03 (0.36-3.74) IU/mL Meds: Medications Discontinued Medications Generic Name Dose Route Start Last Admin Trade Name Freq PRN Reason Stop Dose Admin Bupropion HCl 100 mg 04/03/20 19:47 04/03/20 20:08 Wellbutrin PO 04/03/20 19:48 100 mg ONETIME ONE Administration Hydroxyzine HCl 50 mg 04/03/20 19:46 Vistaril IM 04/03/20 19:47 ONETIME ONE - Re-Assessments/Exams Free Text/Narrative Re-Assessment/Exam: 04/03/20 21:02 TSH level done : normal Departure - Departure Time of Disposition: 21:00 Disposition: Home, Self-Care 01 Condition: Fair Clinical Impression: Depression, DONTRELL (generalized anxiety disorder) - Discharge Information *PRESCRIPTION DRUG MONITORING PROGRAM REVIEWED*: Not Applicable *COPY OF PRESCRIPTION DRUG MONITORING REPORT IN PATIENT MONE: Not Applicable Prescriptions: buPROPion [Wellbutrin] 100 mg PO BID #60 tab Instructions: Generalized Anxiety Disorder, Adult, Major Depressive Disorder, Adult, Ofge-ws-Drol Referrals: PCP,None [Primary Care Provider] - Forms: ED Department Discharge Additional Instructions: 1) Ok to restart Wellbutrin immediately 2) make appointment to see your doctor in the next 3-5 days 3) Use alternative methods for treating anxiety: accupuncture , career education teacher , relaxation , etc Sepsis Event Note (ED) - Evaluation Sepsis Screening Result: No Definite Risk - Focused Exam Vital Signs: Vital Signs Temp Pulse Resp BP Pulse Ox 04/03/20 19:00 36.5 C 84 16 144/78 H 100
[2020-04-03] MEDS ORDERED: hydrOXYzine HCl 50 MG/ML SDV IM ONE (19:46)
[2020-04-03] MEDS: buPROPion 100 MG Tab PO ONE (20:08)
== END 2020-04-03 21:03 | disposition home or self-care (01) ==
LOC: FB.ED 19:00
DX: F32.9 Major depressive disorder, single episode, unspecified (principal); F41.1 Generalized anxiety disorder; J45.909 Unspecified asthma, uncomplicated; E66.9 Obesity, unspecified; Z79.899 Other long term (current) drug therapy; Z91.013 Allergy to seafood; Z91.010 Allergy to peanuts; Z91.048 Other nonmedicinal substance allergy status
CPT/HCPCS: 36415; 84443; 85025; 99284; A9270-GY

== ENCOUNTER 2020-04-25 23:29 | Emergency (ER) | payer OTHER ==
[2020-04-25] MEDS ORDERED: Acetaminophen/HYDROcodone 325-5 MG Tab PO ONE (23:30)
[2020-04-26] MEDS ORDERED: Ketorolac 60 MG/2 ML SDV IM ONE
[2020-04-26] MEDS ORDERED: Acetaminophen 500 MG Tab PO ONE
[2020-04-26] MEDS ORDERED: Aspirin 81 MG Tab.Chew PO STA (00:01)
--- NOTE | 2020-04-26 00:44 | EDM.PDOC ---
ED HPI GENERAL MEDICAL PROBLEM - General Stated Complaint: CHEST PAIN Time Seen by Provider: 04/25/20 23:30 Source of Information: Reports: Patient History Limitations: Reports: No Limitations - History of Present Illness INITIAL COMMENTS - FREE TEXT/NARRATIVE: Patient presented to the ED because of chest pain x 2 days,10/15. The pain is more pleuritic type. There is no nausea,diaphoresis,dyspnea. chest Pain Score (Numeric/FACES): 2 - Related Data Allergies Allergy/AdvReac Type Severity Reaction Status Date / Time Fish Containing Products Allergy Unknown Airway Verified 04/26/20 03:43 Tightness peanut Allergy Unknown Anaphylactic Verified 04/26/20 03:43 Shock tree nut Allergy Anaphylactic Verified 04/26/20 03:43 Shock pet dander Allergy Sneezing Uncoded 04/26/20 03:43 Home Meds: Home Meds Albuterol [Ventolin HFA] 2 puff INH Q4H PRN 10/25/13 [History] EPINEPHrine [Epipen] 0.3 mg IM ASDIRECTED PRN 02/09/20 [History] Fluticasone Propionate [Flonase] 1 spray NASBOTH BID PRN 02/09/20 [History] Triamcinolone Acetonide [Kenalog 0.1% Crm] 1 applic TOP BID PRN 02/09/20 [History] Loratadine [Claritin] 10 mg PO DAILY 03/20/20 [History] hydrOXYzine pamoate [Vistaril] 25 mg PO Q6H PRN 03/20/20 [History] buPROPion [Wellbutrin] 100 mg PO BID #60 tab 04/03/20 [Rx] Past Medical History - Past Health History Medical/Surgical History: Denies Medical/Surgical History HEENT History: Reports: Impaired Vision Cardiovascular History: Reports: None Respiratory History: Reports: Asthma Gastrointestinal History: Reports: Cholelithiasis, GERD Genitourinary History: Reports: None FRUIT SPRAYER History: Reports: , Spontaneous Other FRUIT SPRAYER History: . PREECLAMPSIA Musculoskeletal History: Reports: None Neurological History: Reports: Migraines Psychiatric History: Reports: Anxiety, Depression Endocrine/Metabolic History: Reports: Obesity/BMI 30+ Hematologic History: Reports: None Immunologic History: Reports: None Oncologic (Cancer) History: Reports: None Dermatologic History: Reports: Eczema - Infectious Disease History Infectious Disease History: Reports: Chicken Pox, Novel Coronavirus - Past Surgical History Head Surgeries/Procedures: Reports: None HEENT Surgical History: Reports: None Cardiovascular Surgical History: Reports: None Respiratory Surgical History: Reports: None GI Surgical History: Reports: None Female Surgical History: Reports: D&C Endocrine Surgical History: Reports: None Neurological Surgical History: Reports: None Musculoskeletal Surgical History: Reports: None Oncologic Surgical History: Reports: None Dermatological Surgical History: Reports: None Social & Family History - Family History Family Medical History: No Pertinent Family History HEENT: Reports: Cataract OBGYN: Reports: , Recurrent Spontaneous Neurological: Reports: Alzheimers Disease Endocrine/Metabolic: Reports: Diabetes, type II Oncologic: Reports: Lung - Caffeine Use Caffeine Use: Reports: Tea Other Caffeine Use: 1 bottle of pop per day Caffeine Use Comment: uses very little ED ROS GENERAL - Review of Systems Review Of Systems: See Below Constitutional: Reports: No Symptoms HEENT: Reports: No Symptoms Respiratory: Reports: No Symptoms Cardiovascular: Reports: Chest Pain Endocrine: Reports: No Symptoms GI/Abdominal: Reports: No Symptoms : Reports: No Symptoms Musculoskeletal: Reports: No Symptoms Skin: Reports: No Symptoms Neurological: Reports: No Symptoms Psychiatric: Reports: No Symptoms ED EXAM, GENERAL - Physical Exam Exam: See Below Exam Limited By: No Limitations General Appearance: Alert, No Apparent Distress Ears: Normal External Exam, Normal Canal, Hearing Grossly Normal Nose: Normal Inspection, Normal Mucosa, No Blood Throat/Mouth: Normal Inspection, Normal Lips, Normal Teeth, Normal Gums Head: Atraumatic, Normocephalic Neck: Normal Inspection, Supple, Non-Tender, Full Range of Motion Respiratory/Chest: No Respiratory Distress, Lungs Clear, Normal Breath Sounds, No Accessory Muscle Use, Chest Non-Tender Cardiovascular: Normal Peripheral Pulses, Regular Rate, Rhythm, No Edema, No Gallop, No JVD, No Murmur GI/Abdominal: Normal Bowel Sounds, Soft, Non-Tender, No Organomegaly Back Exam: Normal Inspection, Full Range of Motion Extremities: Normal Inspection, Normal Range of Motion, Non-Tender, No Pedal Edema, Normal Capillary Refill Neurological: Alert, Oriented, CN II-XII Intact, Normal Cognition, Normal Gait, Normal Reflexes, No Motor/Sensory Deficits Course - Vital Signs Text/Narrative:: Labs/EKG/ was discussed with patient EKG-NSR Trop-neg Toradol 324 mg po x1 Flexeril 10 mg po x1 Last Recorded V/S: Last Vital Signs Temp 36.7 C 04/26/20 04:37 Pulse 72 04/26/20 04:37 Resp 18 04/26/20 04:37 BP 124/73 04/26/20 04:37 Pulse Ox 100 04/26/20 04:37 - Orders/Labs/Meds Orders: Active Orders 24 hr Category Date Time Status EKG Documentation Completion [RC] ASDIRECTED Care 04/26/20 04:42 Active EKG 12 Lead [EK] Stat Ther 04/26/20 04:41 Ordered Labs: Laboratory Tests 04/26/20 04/26/20 04/26/20 Range/Units 00:05 00:05 00:05 WBC 9.6 (3.0-10.3) x10-3/uL RBC 4.53 (3.60-5.20) x10(6)uL Hgb 13.2 (11.4-15.5) g/dL Hct 40.1 (34.2-48.2) % MCV 88.7 (76.7-100.5) fL MCH 29.1 (23.9-33.9) pg MCHC 32.8 (31.9-34.8) g/dL RDW 14.2 (12.3-16.5) % Plt Count 239 (151-488) x10(3)uL MPV 9.3 (7.1-12.4) fL Neut % (Auto) 58.8 (30.8-76.2) % Lymph % (Auto) 31.2 (18.4-52.1) % [place] % (Auto) 6.2 (4.4-15.7) % Eos % (Auto) 3.2 (0.6-8.1) % Baso % (Auto) 0.6 (0.2-1.5) % Neut # (Auto) 5.6 (1.5-6.3) x10-3/uL Lymph # (Auto) 3.0 (1.0-4.4) x10-3/uL [place] # (Auto) 0.6 (0.3-1.0) x10-3/uL Eos # (Auto) 0.3 (0.0-0.8) x10-3/uL Baso # (Auto) 0.1 (0.0-0.1) x10-3/uL Sodium 139 (135-145) mmol/L Potassium 3.6 (3.5-5.3) mmol/L Chloride 104 (100-110) mmol/L Carbon Dioxide 28 (21-32) mmol/L BUN 11 (7-18) mg/dL Creatinine 0.9 (0.55-1.02) mg/dL Est Cr Clr Drug Dosing TNP Estimated GFR (MDRD) > 60 (>60) BUN/Creatinine Ratio 12.2 (9-20) Glucose 103 (80-116) mg/dL Calcium 9.7 (8.6-10.2) mg/dL Total Bilirubin 0.4 (0.1-1.3) mg/dL AST 37 H D (5-25) IU/L ALT 54 H D (12-36) U/L Alkaline Phosphatase 79 (56-112) IU/L Troponin I 10.6 (4.0-60.3) pg/mL Total Protein 7.9 (6.0-8.0) g/dL Albumin 4.2 (3.5-5.2) g/dL Globulin 3.7 g/dL Albumin/Globulin Ratio 1.1 Meds: Medications Discontinued Medications Generic Name Dose Route Start Last Admin Trade Name Ediq PRN Reason Stop Dose Admin Acetaminophen 1,000 mg 04/26/20 00:00 04/26/20 00:06 Tylenol Extra Strength PO 04/26/20 00:01 1,000 mg ONETIME ONE Administration Aspirin 81 mg 04/26/20 00:01 04/25/20 23:30 Aspirin PO 04/26/20 00:02 81 mg NOW STA Administration Cyclobenzaprine HCl 10 mg 04/26/20 00:50 04/26/20 01:08 Flexeril PO 04/26/20 00:51 10 mg ONETIME ONE Administration Ketorolac Tromethamine 60 mg 04/26/20 00:00 04/26/20 00:06 Toradol IM 04/26/20 00:01 60 mg ONETIME ONE Administration Departure - Departure Time of Disposition: 00:45 Disposition: Home, Self-Care 01 Condition: Good Clinical Impression: Atypical chest pain Instructions: Chest Wall Pain, [id number] Referrals: PCP,None [Primary Care Provider] - Forms: ED Department Discharge Additional Instructions: Please read discharge instructions on chest wall pain Take ibuprofen 800 mg with tylenol 1000 mg every 8 hours as needed for pain [place] 5/325, 1-2 tablets every 4-6 hours as needed for pain that you can't tolerate Follow up as needed Sepsis Event Note (ED) - Focused Exam Vital Signs: Vital Signs Temp Pulse Resp BP Pulse Ox 04/26/20 04:37 36.7 C 72 18 124/73 100 04/25/20 23:30 36.8 C 70 18 132/70 99 - My Orders Last 24 Hours: My Active Orders 04/26/20 04:41 EKG 12 Lead [EK] Stat 04/26/20 04:42 EKG Documentation Completion [RC] ASDIRECTED - Assessment/Plan Last 24 Hours: My Active Orders 04/26/20 04:41 EKG 12 Lead [EK] Stat 04/26/20 04:42 EKG Documentation Completion [RC] ASDIRECTED
[2020-04-26] MEDS ORDERED: Cyclobenzaprine 10 MG Tab PO ONE (00:50)
[2020-04-26 04:38] VITALS: BP 124/73; PULSE 72
== END 2020-04-26 01:15 | disposition home or self-care (01) ==
LOC: FB.ED 23:29
DX: R07.89 Other chest pain (principal); J45.909 Unspecified asthma, uncomplicated; E66.9 Obesity, unspecified; Z68.31 Body mass index [BMI] 31.0-31.9, adult; Z91.048 Other nonmedicinal substance allergy status; Z91.010 Allergy to peanuts; Z79.899 Other long term (current) drug therapy
CPT/HCPCS: 36415; 80053; 84484; 85025; 93005; 96372; 99284; 99284-25; A9270-GY; J1885